=== PATIENT | female | born 1975 | race American Indian/Alaskan Native ===

== ENCOUNTER 2024-09-02 15:58 | Emergency (ER) | payer OTHER, SELFPAY ==
[2024-09-02 16:13] VITALS: BP 176/111
[2024-09-02 16:37] LABS: % Basophils 0.4 % (0-2); % Eosinophils 2.6 % (0-6); % Immature Granulocytes 0.3 % (0-0.5); % Lymphocytes 25.9 % (20.5-51.1); % Monocytes 4.8 % (1.7-9.3); Absolute Eosinophils 0.3 10^3/uL (0-0.7); Absolute Lymphocytes 2.8 10^3/uL (1.2-3.4); Absolute Monocytes 0.5 10^3/uL (0.1-0.6); Absolute Neutrophils 7.2 10^3/uL (1.4-6.5); Hematocrit 42.5 % (37.0-47.0); Hemoglobin 13.8 g/dL (12.0-16.0); Mean Corp Hgb Conc. 32.5 g/dL (33.0-37.0); Mean Corpuscular Volume 86.4 fL (81.0-99.0); Mean Platelet Volume 9.1 fL (7.4-10.4); Nucleated Red Blood Cells % 0 %; Platelet Count 318 10^3/uL (130-400); Red Blood Cell Count 4.92 10^6/uL (4.20-5.40); Red Cell Dist. Width 14.4 % (11.5-14.5); White Blood Cell Count 10.9 10^3/uL (4.8-10.8)
[2024-09-02 16:56] LABS: Lipase 33 U/L (23-300)
[2024-09-02 16:57] LABS: ALT (SGPT) 27 U/L (0-35); AST (SGOT) 21 U/L (14-36); Albumin 4.5 g/dl (3.5-5.0); Alkaline Phosphatase 99 U/L (38-126); Blood Urea Nitrogen 8 mg/dl (7-17); Calcium 9.4 mg/dl (8.4-10.2); Carbon Dioxide 24 mmol/L (22-30); Chloride 108 mmol/L (98-107); Glucose 116 mg/dl (70-99); Potassium 4.2 mmol/L (3.5-5.1); Sodium 140 mmol/L (135-145); Total Bilirubin 0.6 mg/dl (0.2-1.3); Total Protein 7.3 g/dl (6.3-8.2); eGFR > 60.00
[2024-09-02 17:47] VITALS: BP 156/89
[2024-09-02 18:00] VITALS: BP 154/89
[2024-09-02] MEDS: CARAFATE SUSPENSION 1 GM PO (18:48)
[2024-09-02 19:00] VITALS: BP 132/84
[2024-09-02] MEDS: TORADOL 15 MG IV (20:57)
[2024-09-02 21:04] VITALS: BP 148/86
--- NOTE | 2024-09-02 21:11 | ED.GENMED ---
History of Present Illness
General
Chief Complaint: Abdominal Pain
Source: patient and family (son)
Time Seen by Provider: 09/02/24 17:37
History of Present Illness
History of Present Illness:
Note:
CHIEF COMPLAINT(S)
Epigastric pain
HISTORY OF PRESENT ILLNESS
The patient is a 49-year-old female who presents with epigastric pain. She underwent an endoscopy today following an episode of similar pain two weeks ago that led her to [facility], where a CT scan and bloodwork showed no
significant findings. The pain initially began last night around 5 p.m. after consuming spicy food. The pain was mild overnight but increased significantly after the endoscopy and upon returning home. She consulted her primary care doctor two weeks
ago for similar symptoms and was prescribed medications for gastrointestinal relief and nausea, which provided temporary relief. The patient describes the pain as centralized in the upper abdomen with tenderness in the right upper quadrant. She
reports an inability to ingest food or liquids, with associated nausea but no vomiting. She denies high blood pressure, diabetes, or heart problems and takes levothyroxine for hypothyroidism. The patient has a history of cortisone injection allergy.
ADDITIONAL HISTORY OBTAINED FROM SOURCES OTHER THAN THE PATIENT
According to the patients family (son), no significant surgical interventions were performed, and her gallbladder is intact.
PHYSICAL EXAM
- Abdominal: Tenderness in the right upper quadrant, no distention, nl bowel sounds
- Respiratory: No distress, lungs clear to auscultation
- Cardiovascular: Regular heart rhythm, no murmurs
- Neurological: No focal motor deficit, cranial nerves grossly intact
PLAN
An ultrasound of the upper abdomen is to be initiated to assess for gallbladder and biliary tract abnormalities. The patients discharge papers will be reviewed, and further laboratory tests will be conducted as necessary. The patient is to remain
NPO until further evaluation, with consideration given to administering gastrointestinal medications for symptom relief.
DIFFERENTIAL DIAGNOSIS
The Differential Diagnosis includes, in no particular order and is not limited to:
1. Cholecystitis
2. Peptic ulcer disease
3. Gastritis
4. Biliary colic
5. Gastroesophageal reflux disease (GERD)
6. Pancreatitis
7. Helicobacter pylori infection
8. Peptic ulcer perforation
9. Functional dyspepsia
10. Esophagitis
CARE-UPDATE
09/02/24 - 20:53
Patients current status discussed with general surgery team. Labs indicate a minimally elevated weight of 10.9, reducing likelihood of cholecystitis.
Disposition:
SUMMARY OF ENCOUNTER
The patient, a female with persistent epigastric and right upper quadrant pain, had outpatient studies and a recent endoscopy showing mild inflammation. An ultrasound revealed an impacted gallbladder neck stone.
DISPOSITION
The patient will be admitted for a cholecystectomy tomorrow.
MANAGEMENT OF THE PATIENTS CARE WAS DISCUSSED WITH
The surgical team.
MEDICATION RECONCILIATION
Intravenous Zosin was recommended by surgery.
MEDICAL DECISION MAKING
Chronic conditions affecting care: hypothyroidism. The differential diagnosis includes cholecystitis, GERD, and gallstone-related issues. Data reviewed included ultrasound findings showing an impacted gallbladder neck stone. Discussion of care with
the surgical team led to the decision for cholecystectomy.
PATHOLOGIES TO CONSIDER
Consideration of cholecystitis due to gallbladder stone; pancreatitis due to persistent abdominal pain; peptic ulcer disease due to epigastric pain.
Phy Exam
Physical Exam
Physical Exam:
.
Course
Orders/Labs/Results
Orders:
Orders
09/02/24 16:20
Electrocardiogram (*1) Urgent
Reason for Study: Abdominal Pain
EKG- Treatment ONCE
09/02/24 16:26
Complete Blood Count/With Diff Urgent
Comprehensive Metabolic Panel Urgent
Lipase Stat
09/02/24 18:42
Sucralfate Suspension [Carafate Suspension] 1 gm PO NOW STA
US Abdomen Complete/Upper Urgent
Comment:
Reason For Exam: upper abd pain, RUQ pain
09/02/24 20:49
Ketorolac [Toradol] 15 mg IV NOW STA
09/02/24 21:25
Piperacillin/Tazo 3.375 Gram [Zosyn] 3.375 gram in 50 ml IV NOW
09/02/24 22:00
Flush (0.9% Sodium Chloride) [Flush (Nss)] See Dose Instructions IV PER PROTOCOL
Abnormal Lab Results
09/02/24
16:26
WBC 10.9 H 10^3/uL
(4.8-10.8)
MCHC 32.5 L g/dL
(33.0-37.0)
Absolute Neuts (auto) 7.2 H 10^3/uL
(1.4-6.5)
Chloride 108 H mmol/L
(98-107)
Glucose 116 H mg/dl
(70-99)
09/02/24 16:26
09/02/24 16:26
Vital Signs
Initial and Last Documented VS:
Initial Vital Signs
Temp Pulse Resp BP Pulse Ox
98.3 F 66 16 176/111 100
09/02/24 16:13 09/02/24 16:13 09/02/24 16:13 09/02/24 16:13 09/02/24 16:13
Last Documented Vital Signs
Temp Pulse Resp BP Pulse Ox
98.3 F 74 16 109/67 97
09/02/24 16:13 09/02/24 22:03 09/02/24 22:03 09/02/24 22:00 09/02/24 22:30
*Pulse Oximetry
SaO2: 100
Oxygen Mode of Delivery: Room air
Patient hypoxic: no
*Critical Care Note
Total Time (30-74mins, 75-104mins- exclusive of procedures): Not Applicable
Update Note
Update Note:
Long discussion with the patient that she wants to leave. Patient is well-appearing but does have an impacted gallstone. I advised her of her risks including infection, sepsis, worsening pain but the patient does not want to get the surgery now
she was to follow-up with her family doctor. The patient is aware that surgery is the only treatment at this point. Her son is at bedside also trying to convince her to stay. The house nurse practitioner also try to get her to stay. Will
discharge her AGAINST MEDICAL ADVICE
ED Attending Note
-
Portions of this chart may have been created with voice recognition software.� Occasional wrong word or��sound alike� substitutions may have occurred due to the inherent limitations of voice recognition software.
Discharge Plan
Departure
Patient Disposition: Against Medical Advice
Date of Disposition: 09/02/24
Time of Disposition: 21:14
Admit to: Med/Surg
Discharge Problem:
Cholelithiasis, gallbladder neck stone
Instructions: Gallstones (DC)
Prescriptions:
No Action
famotidine 40 mg Tablet
40 mg PO DAILY
levothyroxine 100 mcg Tablet
100 mcg PO DAILY
fluticasone furoate-vilanterol [Breo Ellipta] 200-25 mcg/dose Blister With Device
1 inh INHALATION R BIDPRN PRN (Reason: sob)
Fish Oil
1 cap PO NOON
cholecalciferol (vitamin D3)
1 cap PO NOON
Referrals:
Kwesi Velazquez CRNP [Family Provider, Family Practice]
Alex Martines MD [Active, Surgical]
Activity Restrictions/Additional Instructions:
Please see surgery in the next 1 week for follow-up and reevaluation. Return immediately for fevers, intractable vomiting, intractable pain or any other concerns
Interventions
Interventions:
*Risk Screen - Suicide Last Done: 09/02/24 16:13
*General Assessment Last Done: 09/02/24 17:39
*Neglect/Abuse Screening Last Done: 09/02/24 16:13
*ED- Fall Risk Assessment Last Done: 09/02/24 17:38
*ED COVID-19 Vaccine History Last Done: 09/02/24 17:38
*Nursing Disposition Last Done: 09/02/24 22:46
MG-Uentqb-Yxojrdmhfw Assessment Last Done: 09/02/24 17:47
Discharge Date and Time
Discharge Date/Time: 09/02/24 22:47
Print Language: WALLISIAN
[2024-09-02] MEDS: ZOSYN 50 IV (21:33)
[2024-09-02 22:00] VITALS: BP 109/67
== END 2024-09-02 22:47 | disposition left against medical advice (07) ==
LOC: EMR 15:58
PROVIDERS: Student in an Organized Health Care Education/Training Program; EMERGENCY PHYSICIAN Emergency Medicine
DX: K80.20 Calculus of gallbladder without cholecystitis without obstruction (principal)
CPT/HCPCS: 99285; 96374; 96375; 76700; 80053; 83690; 85025; 93005

== ENCOUNTER 2024-09-05 21:52 | Day surgery (SDC) | payer OTHER, SELFPAY ==
[2024-09-05] VITALS (8 sets, daily range): BP systolic 118–144; BP diastolic 76–116; BMI 37.5; BMI 37.8
--- NOTE | 2024-09-05 16:46 | ED.GENMED ---
History of Present Illness
General
Chief Complaint: Abdominal Pain
Source: patient and records
Exam Limitations: none
Time Seen by Provider: 09/05/24 16:24
History of Present Illness
History of Present Illness:
49yoF with a history of obesity, asthma, and hypothyroidism presenting for evaluation of abdominal pain. Patient was seen in the ED on 09/02/2024 for epigastric pain. Ultrasound showed an impacted gallstone and distended gallbladder. Patient
ultimately left against medical advice. She returns today with worsening pain in her epigastric region that radiates to the right upper quadrant and right flank. She is experiencing 'gas pains' in her chest as well. She also reports subjective
fevers primarily at nighttime. She does not have a thermometer so has not been checking her temperatures at home.
Phy Exam
General Physical Exam
General Presentation: well appearing and no apparent distress
General Skin: warm and dry
General Habitus: normal
General Mental: alert
ENT Exam
ENT Exam: normocephalic
Cardiovascular Exam
Cardiovascular Exam: regular rate/rhythm
Pulmonary Exam
Pulmonary Exam: lungs clear, no respiratory distress, no rales, no crackles, no rhonchi and no wheezing
Gastrointestinal Exam
Gastrointestinal Exam: soft, non distended and other (+Tenderness in epigastrium and RUQ. +Haynes's sign.)
Neurological Exam
Neurological Exam: alert
[place] Coma Scale
Eye Opening: Spontaneous
Verbal Response: Oriented
Motor Response: Obeys Commands
GCS Total Score: 15
Skin Exam
Skin Exam: normal color and warm/dry
Psychiatric Exam
Psychiatric Exam: normal mood/affect
Course
Orders/Labs/Results
Orders:
Orders
09/05/24 16:40
Electrocardiogram (*1) Urgent
Reason for Study: Abdominal Pain
EKG- Treatment ONCE
0.9% Sodium Chloride 1000 ml [Nss] 1,000 ml IV BOLUS
HYDROmorphone [Dilaudid] 0.5 mg IV NOW STA
US Abdomen Limited Urgent
Comment:
Reason For Exam: RUQ pain
09/05/24 17:37
Complete Blood Count/With Diff Urgent
Comprehensive Metabolic Panel Urgent
Lipase Urgent
Troponin I Urgent
Abnormal Lab Results
09/05/24
17:37
MCHC 32.8 L g/dL
(33.0-37.0)
Absolute Lymphs (auto) 3.8 H 10^3/uL
(1.2-3.4)
Absolute Monos (auto) 0.8 H 10^3/uL
(0.1-0.6)
BUN 6 L mg/dl
(7-17)
Glucose 120 H mg/dl
(70-99)
09/05/24 17:37
09/05/24 17:37
Vital Signs
Initial and Last Documented VS:
Initial Vital Signs
Temp Pulse Resp BP Pulse Ox
99.2 F 95 18 144/99 97
09/05/24 12:48 09/05/24 12:48 09/05/24 12:48 09/05/24 12:48 09/05/24 12:48
Last Documented Vital Signs
Temp Pulse Resp BP Pulse Ox
99.2 F 95 18 122/84 98
09/05/24 12:48 09/05/24 12:48 09/05/24 18:00 09/05/24 20:00 09/05/24 20:30
MDM/Problems Addressed
Differential Diagnosis Includes:
49yoF here with worsening abd pain. Seen in ED 3 days ago and diagnosed with gallstones. Reports subjective fever overnight but is afebrile on arrival. Positive Haynes's sign on exam. Differential diagnosis includes but is not limited to: biliary
colic, cholecystitis, pancreatitis
Initial ED plan: Check abdominal labs, troponin/EKG, and RUQ ultrasound. IV Dilaudid and fluid bolus for symptoms.
*Pulse Oximetry
SaO2: 97
Oxygen Mode of Delivery: Room air
Patient hypoxic: no
*EKG
Interpreted by ED Provider?: Yes
EKG Intrepretation Date: 09/05/24
Heart Rate: 89
Rate: normal
Rhythm: sinus
[place]: normal axis
Interval: normal interval
QRS Pattern: normal QRS
Ischemia: other (Nonspecific T wave abnormality )
*Critical Care Note
Total Time (30-74mins, 75-104mins- exclusive of procedures): Not Applicable
Update Note
Update Note:
Labs overall unremarkable including normal white count, LFTs, and lipase. EKG shows NSR without ischemic changes and troponin WNL. Ultrasound unchanged from 3 days ago. Given bouceback visit within 72 hours, will admit for further evaluation.
ED Attending Note
-
Portions of this chart may have been created with voice recognition software.� Occasional wrong word or��sound alike� substitutions may have occurred due to the inherent limitations of voice recognition software.
Discharge Plan
Departure
Patient Disposition: Admit
Date of Disposition: 09/05/24
Time of Disposition: 19:22
Presentation/result/management discussed w/ accepting MD/DO: Dr. Milan
Discharge Problem:
Biliary colic
Prescriptions:
No Action
famotidine 40 mg Tablet
40 mg PO DAILY
levothyroxine 100 mcg Tablet
100 mcg PO DAILY
fluticasone furoate-vilanterol [Breo Ellipta] 200-25 mcg/dose Blister With Device
1 inh INHALATION R BIDPRN PRN (Reason: sob)
Fish Oil
1 cap PO NOON
cholecalciferol (vitamin D3)
1 cap PO NOON
Referrals:
UNKNOWN - PT DOES,NOT KNOW [Unknown Provider]
Interventions
Interventions:
*Risk Screen - Suicide Last Done: 09/05/24 12:48
*General Assessment Last Done: 09/05/24 17:43
*Neglect/Abuse Screening Last Done: 09/05/24 12:48
*ED- Fall Risk Assessment Last Done: 09/05/24 17:47
*ED COVID-19 Vaccine History Last Done: 09/05/24 17:46
JI-Tdtntf-Nowsoxnmtw Assessment Last Done: 09/05/24 17:42
Discharge Date and Time
Print Language: IRISH
[2024-09-05] MEDS: DILAUDID 0.5 MG IV (17:39)
[2024-09-05] MEDS: NSS 1000 IV ×2 (17:40→22:52)
[2024-09-05 17:42] LABS: % Basophils 0.5 % (0-2); % Eosinophils 3.1 % (0-6); % Immature Granulocytes 0.3 % (0-0.5); % Lymphocytes 37.8 % (20.5-51.1); % Monocytes 8.1 % (1.7-9.3); % Neutrophils 50.2 % (42.2-75.2); Absolute Basophils 0.1 10^3/uL (0-0.2); Absolute Eosinophils 0.3 10^3/uL (0-0.7); Absolute Lymphocytes 3.8 10^3/uL (1.2-3.4); Absolute Monocytes 0.8 10^3/uL (0.1-0.6); Hemoglobin 12.8 g/dL (12.0-16.0); Mean Corp Hgb Conc. 32.8 g/dL (33.0-37.0); Mean Corpuscular Hgb 28.1 pg (27.0-31.0); Mean Corpuscular Volume 85.5 fL (81.0-99.0); Mean Platelet Volume 9.1 fL (7.4-10.4); Nucleated Red Blood Cells % 0 %; Platelet Count 268 10^3/uL (130-400); Red Blood Cell Count 4.56 10^6/uL (4.20-5.40); Red Cell Dist. Width 14.1 % (11.5-14.5); White Blood Cell Count 9.9 10^3/uL (4.8-10.8)
[2024-09-05 18:16] LABS: Troponin I < 0.012 ng/ml
[2024-09-05 18:51] LABS: ALT (SGPT) 22 U/L (0-35); AST (SGOT) 20 U/L (14-36); Albumin 3.9 g/dl (3.5-5.0); Alkaline Phosphatase 76 U/L (38-126); Blood Urea Nitrogen 6 mg/dl (7-17); Calcium 9.4 mg/dl (8.4-10.2); Carbon Dioxide 25 mmol/L (22-30); Chloride 107 mmol/L (98-107); Glucose 120 mg/dl (70-99); Lipase 35 U/L (23-300); Potassium 3.9 mmol/L (3.5-5.1); Sodium 140 mmol/L (135-145); Total Bilirubin 0.8 mg/dl (0.2-1.3); Total Protein 6.8 g/dl (6.3-8.2); eGFR > 60.00
--- NOTE | 2024-09-05 21:45 | HPS.HSE ---
Family Physician
-
Family Physician: Jim Garcia
Chief Complaint
-
Abdominal pain
History of Present Illness
The patient is a 49-year-old female with a PMH of hypothyroidism, asthma, GERD and obesity who presents to [facility] with increasing abdominal pain. The pain initially began two weeks ago when she presented to [facility] where she had a
CT scan and labs that she reports showed no significant findings. Following this she consulted her PCP who prescribed her medications for gastrointestinal relief and nausea-which provided temporary relief. On 09/02/24 she presented to [facility] with a
similar complaint and her abdominal ultrasound showed a 1.5 cm IMPACTED GALLSTONE in the GALLBLADDER NECK- at this time they recommended admission but she declined. Pt presents now for increasing right upper quadrant pain that radiates to the
epigastric area. Pt states she has not been taking anything at home to help with the pain and has not eaten anything today- due to the pain. She did eat papaya yesterday. She denies any n/v/d, urinary s/s. Reports no chest pain, shortness of breath
or fevers.
In the ER vital signs stable, IVF administered and Dilaudid for pain management. LABS: WBCs: 9.9, Bili: 0.8, AST: 20, ALT: 22
Medical History
Past Medical History
Past Medical History: Reports Asthma, GERD, Hypothyroidism and Other (Obesity: class 2)
Past Surgical History: Reports None
Social History
Alcohol: None
Drug: None
Living: With Family
Family History
Family History: Not pertinent
Allergies / Home Medications
Allergies reflects when Allergies were last updated in [facility].
Home Medications with original date entered in [facility]
Allergy/Medication List:
Allergies
Allergy/AdvReac Type Severity Reaction Status Date / Time
cortisone Allergy Rash Verified 09/02/24 16:12
Home Medications
Fish Oil 1 cap PO NOON 09/02/24
cholecalciferol (vitamin D3) 1 cap PO NOON 09/02/24
famotidine 40 mg tablet 40 mg PO DAILY 09/02/24
fluticasone furoate 200 mcg-vilanterol 25 mcg/dose inhalation powder (Breo Ellipta) 1 inh inhalation R BIDPRN PRN sob 09/02/24
levothyroxine 100 mcg tablet 100 mcg PO DAILY 09/02/24
Review of Systems
-
History Source: Patient and Family
A 12 point ROS was completed and negative except as noted: Yes
Abdomen/GI: Reports Abdominal Pain and Anorexia
Physical Exam
Vital Signs
Vital Signs
Temp Pulse Resp BP Pulse Ox
99.2 F 95 18 122/84 98
09/05/24 12:48 09/05/24 12:48 09/05/24 18:00 09/05/24 20:00 09/05/24 20:30
Physical Exam
General: Well Developed, Comfortable and Poor Appetite
HEENT: NormoCephalic
Respiratory: Clear
Cardiac: S1/S2 and Regular Rhythm
GI: Soft, Tender, Distended and Other (hypoactive bowel sounds )
Musculoskeletal: No Edema
Skin: Warm and Dry
Neuro: Awake, Alert and Oriented
Psych: Calm
Laboratory Results
-
09/05/24 17:37
09/05/24 17:37
Laboratory Results
Total Bilirubin 0.8 mg/dl (0.2-1.3) 09/05/24 17:37
AST 20 U/L (14-36) 09/05/24 17:37
ALT 22 U/L (0-35) 09/05/24 17:37
Alkaline Phosphatase 76 U/L (38-126) 09/05/24 17:37
Troponin I < 0.012 ng/ml 09/05/24 17:37
Lipase 35 U/L (23-300) 09/05/24 17:37
Data Reviewed
-
Lab Data: Discussed with Patient
Impression/Plan
-
Abdominal ultrasound:
1. Stable exam. Cholelithiasis without sonographic evidence for acute cholecystitis.
2. Hepatomegaly and increased echogenicity in the liver, compatible with underlying hepatocellular disease, which most commonly relates to fatty infiltration of the liver.
IMPRESSION/PLAN:
Biliary colic:
Admit to general surgery- Dr. Milan
Med/Surg
NPO
IVF
Pain Meds: Tylenol/Dilaudid
Asthma:
resp status stable on exam
cont. Breo Ellipta
Hypothyroidism:
Cont. Synthroid
GERD:
No overt s/s of GERD
cont. Famotidine
Obesity class 2:
Encourage healthy life style
follow with PCP
Code status: full code
DVT prophylaxis: Lovenox
--- NOTE | 2024-09-05 22:45 | PTCARENOTE ---
Pt transferred to [address] [place] [address] from ED at 2245. Differential diagnosis include biliary colic, cholecystitis, pancreatitis. AAOx3. VSS. IVF infusing as ordered. Spouse at bedside. Pt oriented to room, call broderick within reach, bed in lowest position.
[2024-09-05] MEDS: SYMBICORT 160/4.5 MCG INHALER 2 PUFF INH (23:27)
[2024-09-06] VITALS (15 sets, daily range): BP systolic 90–144; BP diastolic 57–85
[2024-09-06] MEDS: SYNTHROID 100 MCG PO (05:09)
[2024-09-06 06:29] LABS: Hematocrit 38.1 % (37.0-47.0); Hemoglobin 12.7 g/dL (12.0-16.0); Mean Corp Hgb Conc. 33.3 g/dL (33.0-37.0); Mean Corpuscular Hgb 28.3 pg (27.0-31.0); Mean Corpuscular Volume 84.9 fL (81.0-99.0); Mean Platelet Volume 9.2 fL (7.4-10.4); Platelet Count 262 10^3/uL (130-400); Red Blood Cell Count 4.49 10^6/uL (4.20-5.40); Red Cell Dist. Width 14.2 % (11.5-14.5); White Blood Cell Count 8.6 10^3/uL (4.8-10.8)
[2024-09-06 06:54] LABS: Blood Urea Nitrogen 7 mg/dl (7-17); Calcium 8.9 mg/dl (8.4-10.2); Carbon Dioxide 26 mmol/L (22-30); Chloride 108 mmol/L (98-107); Estimated Creatinine Clearance 122 ml/min; Glucose 110 mg/dl (70-99); Potassium 3.6 mmol/L (3.5-5.1); Sodium 140 mmol/L (135-145); eGFR > 60.00
--- NOTE | 2024-09-06 07:52 | CON.GS ---
Medical History
-
Chief Complaint: Epigastric and RUQ abdominal pain
History of Present Illness:
Patient is a 49 yo F with a PMH of obesity, hypothyroidism, and asthma who presents with epigastric and RUQ abdominal pain. Ms. Montgomery states that she first developed symptoms approximately 2 weeks ago. She underwent a GI evaluation at [facility] including a EGD and CT scan. Per report from patient, notable findings include mild stomach irritation with a biopsy (she does not have a report or specifics). She trialed a H2 kory per her PCP with mild improvement in her symptoms.
She reports a more severe attack of abdominal pain this past Thursday into Thursday prompting presentation to the ER on 09/02. Her symptoms improved and she ultimately left AMA. She re-presented to ER with persistent abdominal discomfort. No
clear association with food intake. She reports an episode of nausea and vomiting during her previous CT scan. She denies any jaundice, pale stools, or tea colored urine. No family members postcholecystectomy.
Past Medical History
Past Medical History: Asthma, Hypothyroidism and Other (Obesity)
Past Surgical History: None
Social History
Tobacco: Non-Smoker
Alcohol: None
Drug: None
Living: With Family
Employment: Not Employed
Family History
Family History: Reviewed & Noncontributory
Allergies / Home Medications
Allergy/AdvReac Type Severity Reaction Status Date / Time
cortisone Allergy Rash Verified 09/02/24 16:12
�Medication �Instructions �Recorded �Confirmed �Type
Fish Oil 1 cap PO NOON 09/02/24 09/05/24 History
cholecalciferol (vitamin D3) 1 cap PO NOON 09/02/24 09/05/24 History
famotidine 40 mg tablet 40 mg PO DAILY 09/02/24 09/05/24 History
fluticasone furoate 200 1 inh inhalation R BIDPRN PRN sob 09/02/24 09/05/24 History
mcg-vilanterol 25 mcg/dose
inhalation powder (Breo Ellipta)
levothyroxine 100 mcg tablet 100 mcg PO DAILY 09/02/24 09/05/24 History
Review of Systems
-
A 10 point review of systems was completed, and was negative except as per HPI.
Physical Exam
Vital Signs
Temp Pulse Resp BP Pulse Ox
98.1 F 83 18 144/85 97
09/06/24 07:05 09/06/24 07:05 09/06/24 07:05 09/06/24 07:05 09/06/24 07:05
09/05/24 09/06/24 09/07/24
06:59 06:59 06:59
Actual Weight 93.758 kg
Body Mass Index (BMI) 37.8
Lab Results
09/06/24 05:54
09/06/24 05:54
WBC 8.6 10^3/uL (4.8-10.8) 09/06/24 05:54
Hgb 12.7 g/dL (12.0-16.0) 09/06/24 05:54
Hct 38.1 % (37.0-47.0) 09/06/24 05:54
Plt Count 262 10^3/uL (130-400) 09/06/24 05:54
Abs Immat Gran (auto) 0.0 10^3/uL (0-0.05) 09/05/24 17:37
Neutrophils % 50.2 % (42.2-75.2) 09/05/24 17:37
Physical Exam
General: Well Developed, Well Nourished and No Apparent Distress
HEENT: Normocephalic and Anicteric
Respiratory: Non Labored Respirations
Cardiac: Regular Rhythm
GI: Soft, Non Distended, Tender (RUQ, positive Haynes's sign), Obese and Other (Nonperitoneal)
Musculoskeletal: No Edema
Skin: Warm and Dry
Neuro: Nonfocal/Grossly Intact
Data Reviewed
-
Ultrasound: Image Personally Visualized and interpreted and Report Reviewed by me
Labs: Labs Reviewed by me
Old Records: Reviewed
Assessment / Plan
-
Patient is a 49 yo F p/w persistent biliary colic versus acute cholecystitis
The natural history and pathophysiology of biliary and stone disease was discussed. Anatomy was reviewed utilizing pictorial images. Workup thus far including labs and ultrasound imaging were reviewed. Options for management including medical
management with a low-fat diet versus surgical management with cholecystectomy were considered and discussed. The pros and cons of both approaches was discussed. Given her persistent symptoms recommend cholecystectomy.
Plan for a laparoscopic cholecystectomy with possible cholangiogram. The procedure itself, as well as the risks, benefits, and alternatives was discussed. Specifically, we discussed the risks of bleeding, infection, injury to surrounding
structures (bowel, bile ducts), CBD injury, need for open procedure. Typical postprocedural recovery including pain management and a 10 to 20% risks of fluctuations in GI function was discussed. All questions answered. Consent signed.
-- Laparoscopic cholecystectomy with possible cholangiogram
-- NPO, IVF
-- Antibiotics: Zosyn
--- NOTE | 2024-09-06 07:58 | W.SUR.PREOP ---
Pre-Operative Surgical Note
-
I have examined this patient prior to the performance of the scheduled procedure.
The patient's condition is unchanged from the time of the current History and
Physical and the patient is able to undergo the scheduled procedure.
--- NOTE | 2024-09-06 09:16 | CM ---
CM following re: discharge planning.
Reviewed pt's chart, met with pt.
Pt is a 49 year old female, admitted with OBS status and primary dx of Abdominal pain. per Surgery, OR today for Laparoscopic cholecystectomy with possible cholangiogram. OBS status explained to the pt, pt expressed her understanding, OBS letter
signed, placed on chart, pot has a copy.
Pt reports she was born and grew up in [place], emig[place] to [place] with family 20 years ago and resided with family in [facility]. Pt reports she lives with and 4 children in a 2SH, 3 steps to enter. Pt described herself as
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
PCP: Jim Garcia
Pharmacy: [facility].
D/C plan: home with anticipated no needs. Spouse to transport at discharge.
CM will follow with discharge plan updates as hospitalization progresses
[2024-09-06] MEDS: ZOSYN 50 IV ×3 (10:38→19:48)
--- NOTE | 2024-09-06 12:05 | W.IMMPOSTOP ---
Surgical Immed Post Op Note
-
Primary Surgeon: Yaritza
Assisting Surgeon: None
Pre-op Diagnosis: Acute cholecystitis
Post-op Diagnosis: Acute cholecystitis
Procedure Performed: Laparoscopic cholecystectomy with IOC
Anesthesia Type: General
Specimen / Cultures:
1. Gallbladder
Estimated Blood Loss: 3 cc
Complications: None
Operative Findings:
1. Acutely inflamed GB, thickened wall, edema, hydropic bile
2. Critical view
3. IOC negative
4. Artery taken with clips, duct with evans load stapler
[2024-09-06] MEDS: DILAUDID 0.25 MG IV ×2 (12:42→13:02)
--- NOTE | 2024-09-06 13:45 | PTCARENOTE ---
Pt received from the PACU via bed. Pt is Drowsy, and easily arousable. Pt's abd with 5 Lap sites, C/D/I, w/surgical glue, [employer]. No drainage noted. Ice pack applied to abd for comfort as ordered. Pt's VSS, Pt is afebrile. Pt instructed on plan of
care. Pt verbalized understanding of instructions. Call broderick is within reach.
[2024-09-06] MEDS: PEPCID 40 MG PO (15:38)
[2024-09-06] MEDS: NSS 1000 IV (15:46)
[2024-09-06] MEDS: TORADOL 10 MG IV (15:49)
[2024-09-06] MEDS: TYLENOL 650 MG PO ×3 (15:50→23:01)
[2024-09-06] MEDS: LOVENOX 40 MG SC (19:48)
[2024-09-06] MEDS: ANESTHETIC LOZENGE 1 LOZENGE PO (23:22)
[2024-09-07] MEDS: ZOSYN 50 IV (01:15)
[2024-09-07 03:00] VITALS: BP 100/61
[2024-09-07] MEDS: TYLENOL PO (03:36)
[2024-09-07] MEDS: NSS 1000 IV (04:55)
[2024-09-07] MEDS: SYNTHROID 100 MCG PO (05:00)
[2024-09-07] MEDS: DILAUDID 0.5 MG IV (05:25)
[2024-09-07] MEDS: ANESTHETIC LOZENGE 1 LOZENGE PO (05:30)
[2024-09-07 07:05] VITALS: BP 105/66
--- NOTE | 2024-09-07 07:05 | W.PN.GS2 ---
Today's Communication / Plan
-
-- Pain control: Tylenol, Toradol, Oxycodone
-- Home meds
-- Dispo pending pain control
Assessment / Plan
-
Patient is a 49 yo F p/w acute cholecystitis
POD#1 s/p laparoscopic cholecystectomy with IOC
AVSS
Labs pending
Recovering well. Needs improved pain control prior to DC.
-- LFD
-- HLIV
-- Pain control: Tylenol, Toradol, Oxycodone
-- Home meds
-- DVT Lovenox
-- GI: home H2 kory
-- Dispo pending pain control
Subjective Data
-
Date of Service: September 07, 2024
Reports pain; difficulties with ambulation or coughing due to soreness. No nausea or emesis. No fevers or chills. No fevers.
Objective Data
-
Intake and Output
09/06/24 09/07/24 09/08/24
06:59 06:59 06:59
Intake Total 120 / 120 200 / 200
Balance 120 / 120 200 / 200
Intake:
Oral fluids 120 / 120
IV fluids (Total) 100 / 100
normosol 100 / 100
IV piggybacks 100 / 100
Other:
Number of approximated MODERATE 1 2
amounts of urine
Vital Signs
Temp Pulse Resp BP Pulse Ox
97.9 F 77 18 100/61 94
09/07/24 03:00 09/07/24 03:00 09/07/24 03:00 09/07/24 03:00 09/07/24 03:00
Lab Results
09/06/24 05:54
09/06/24 05:54
Calcium 8.9 mg/dl (8.4-10.2) 09/06/24 05:54
Total Bilirubin 0.8 mg/dl (0.2-1.3) 09/05/24 17:37
AST 20 U/L (14-36) 09/05/24 17:37
ALT 22 U/L (0-35) 09/05/24 17:37
Alkaline Phosphatase 76 U/L (38-126) 09/05/24 17:37
Total Protein 6.8 g/dl (6.3-8.2) 09/05/24 17:37
Albumin 3.9 g/dl (3.5-5.0) 09/05/24 17:37
Physical Exam
-
Gen: NAD
Abd: soft, tender to palpation, ND, non-peritoneal, incisions c/d/i - no erythema, ecchymosis or drainage
Patient has a dale catheter: No
Patient has a central line: No
[2024-09-07 07:59] LABS: Hematocrit 36.5 % (37.0-47.0); Hemoglobin 11.9 g/dL (12.0-16.0); Mean Corp Hgb Conc. 32.6 g/dL (33.0-37.0); Mean Corpuscular Hgb 28.2 pg (27.0-31.0); Mean Corpuscular Volume 86.5 fL (81.0-99.0); Mean Platelet Volume 9.2 fL (7.4-10.4); Platelet Count 297 10^3/uL (130-400); Red Blood Cell Count 4.22 10^6/uL (4.20-5.40); Red Cell Dist. Width 14.1 % (11.5-14.5)
[2024-09-07 08:24] LABS: ALT (SGPT) 51 U/L (0-35); AST (SGOT) 32 U/L (14-36); Albumin 3.4 g/dl (3.5-5.0); Alkaline Phosphatase 84 U/L (38-126); Blood Urea Nitrogen 11 mg/dl (7-17); Calcium 8.6 mg/dl (8.4-10.2); Carbon Dioxide 25 mmol/L (22-30); Chloride 114 mmol/L (98-107); Estimated Creatinine Clearance 122 ml/min; Glucose 128 mg/dl (70-99); Potassium 4.4 mmol/L (3.5-5.1); Sodium 141 mmol/L (135-145); Total Bilirubin 0.4 mg/dl (0.2-1.3); Total Protein 5.9 g/dl (6.3-8.2); eGFR > 60.00
[2024-09-07] MEDS: TYLENOL 650 MG PO ×4 (09:51→21:23)
[2024-09-07] MEDS: PEPCID 40 MG PO (09:52)
[2024-09-07] MEDS: ROXICODONE 5 MG PO ×2 (09:53→16:09)
[2024-09-07 11:00] VITALS: BP 112/74
[2024-09-07] MEDS: TORADOL 10 MG IV (13:00)
--- NOTE | 2024-09-07 13:35 | CM ---
CM following re: discharge planning.
Reviewed pt's chart, met with pt.
Pt is POD#1 s/p laparoscopic cholecystectomy with IOC, pain control, continue supportive care.
Pt lives with and 4 children in a 2SH, and pt is independent in all areas [employer].
D/C plan: home with anticipated no needs. Spouse to transport at discharge.
CM will follow with discharge plan updates as hospitalization progresses
[2024-09-07 15:05] VITALS: BP 96/58
[2024-09-07] MEDS: LOVENOX 40 MG SC (16:14)
[2024-09-07 23:21] VITALS: BP 126/77
[2024-09-08] MEDS: TYLENOL PO ×2 (00:50→04:52)
[2024-09-08] MEDS: SYNTHROID 100 MCG PO (05:57)
[2024-09-08] MEDS: TORADOL 10 MG IV (06:03)
--- NOTE | 2024-09-08 07:03 | W.PN.GS2 ---
Today's Communication / Plan
-
-- Abdominal binder
-- DC today
Assessment / Plan
-
Patient is a 49 yo F p/w acute cholecystitis
POD#2 s/p laparoscopic cholecystectomy with IOC
AVSS
Recovering well. Plan to use abdominal binder to stabilize muscles, maintain same pain control. Stable for DC.
-- LFD
-- Pain control: Tylenol, Toradol, Oxycodone, abdominal binder
-- Home meds
-- DVT Lovenox
-- GI: home H2 kory
-- DC today
Subjective Data
-
Date of Service: September 08, 2024
Continued discomfort with movement, improved from yesterday. No nausea or emesis. Slightly loose stool x1, passing flatus. No fevers.
Objective Data
-
Intake and Output
09/07/24 09/08/24 09/09/24
06:59 06:59 06:59
Intake Total 200 / 200 480 / 480
Balance 200 / 200 480 / 480
Intake:
Oral fluids 480 / 480
IV fluids (Total) 100 / 100
normosol 100 / 100
IV piggybacks 100 / 100
Other:
Number of approximated MODERATE 2 2
amounts of urine
Vital Signs
Temp Pulse Resp BP Pulse Ox
97.8 F 72 16 126/77 100
09/07/24 23:21 09/07/24 23:21 09/07/24 23:21 09/07/24 23:21 09/07/24 23:21
Lab Results
09/07/24 07:22
09/07/24 07:23
Calcium 8.6 mg/dl (8.4-10.2) 09/07/24 07:23
Total Bilirubin 0.4 mg/dl (0.2-1.3) 09/07/24 07:23
AST 32 U/L (14-36) 09/07/24 07:23
ALT 51 U/L (0-35) H 09/07/24 07:23
Alkaline Phosphatase 84 U/L (38-126) 09/07/24 07:23
Total Protein 5.9 g/dl (6.3-8.2) L 09/07/24 07:23
Albumin 3.4 g/dl (3.5-5.0) L 09/07/24 07:23
Physical Exam
-
Gen: NAD
Abd: soft, mobid obesity, mild tenderness, ND, non-peritoneal, incisions c/d/i - no erythema, ecchymosis or drainage
Patient has a dale catheter: No
Patient has a central line: No
[2024-09-08 07:05] VITALS: BP 148/88
[2024-09-08] MEDS: TYLENOL 650 MG PO (07:54)
[2024-09-08] MEDS: PEPCID 40 MG PO (08:03)
--- NOTE | 2024-09-08 09:29 | PTCARENOTE ---
Patient ambulating in room with a steady gait. Patient sitting in chair eating breakfast, tolerated >50% of low fat meal. Patient has mild tenderness in RUQ. Abdominal binder at bedside. Patient states, 'I will need help putting in on the abdominal
binder when I am dressed.'
--- NOTE | 2024-09-08 10:24 | CM ---
CM following re: discharge planning.
Reviewed pt's chart. m,et with pt and pt's daughter at bedside.
Pt is POD#2 s/p laparoscopic cholecystectomy with IOC, doing well and will be discharged home today.
Discharge order noted.
Pt is aware and she stated her is coming to transport her home.
No after care VN services indicated.
D/C plan: home no needs. to transport.
== END 2024-09-08 13:14 | disposition home or self-care (01) ==
LOC: PACU 21:52
PROVIDERS: Physician Assistant; Surgery; ATTENDING PHYSICIAN Surgery; EMERGENCY PHYSICIAN Emergency Medicine; FAMILY PHYSICIAN Internal Medicine
DX: K80.43 Calculus of bile duct with acute cholecystitis with obstruction (principal); E66.812 Obesity, class 2; K76.0 Fatty (change of) liver, not elsewhere classified
CPT/HCPCS: 47563; 88304; 74300; 76000; 76705; 80048; 80053; 83690; 84484; 85025; 85027; 93005; 94640; 96361; 96374; 99285; A4300; G0378